=== PATIENT | male | born 1940 | race Caucasian/White ===

== ENCOUNTER 2020-09-02 04:45 | Day surgery (SDC) | payer OTHER ==
[2020-09-01 10:19] VITALS: BMI 26.6
[~2020-09-02 04:45] MED LIST: ceFAZolin SODIUM 1 GM VIAL IVPB ONE
[2020-09-02] MEDS ORDERED: DEXAMETHASONE SOD PHOSPHATE 4 MG/1 ML VIAL ONE (10:56)
[2020-09-02] MEDS ORDERED: ceFAZolin SODIUM 1 GM VIAL IVPB ONE (11:05)
[2020-09-02] MEDS ORDERED: ceFAZolin SODIUM 1 GM VIAL ONE ×2 (11:25)
[2020-09-02] MEDS ORDERED: ONDANSETRON 4 MG/2 ML VIAL IVPUSH PRN (12:03)
[2020-09-02] MEDS ORDERED: oxyCODONE HCL 5 MG TABLET PO PRN (12:03)
[2020-09-02] MEDS ORDERED: LACTATED RINGERS SOLUTION 1,000 ML IV SCH (12:15)
[2020-09-02 14:07] VITALS: BP 147/87; PULSE 74; TEMP 97.4
== END 2020-09-02 14:00 | disposition home or self-care (01) ==
LOC: JASU-SURG 04:45
PROVIDERS: ATTEND Urology
PROC: 0TC78ZZ Extirpation of Matter from Left Ureter, Via Natural or Artificial Opening Endoscopic (ICD-10-PCS; principal; 2020-09-02 10:00)
PROC: 0T9780Z Drainage of Left Ureter with Drainage Device, Via Natural or Artificial Opening Endoscopic (ICD-10-PCS; 2020-09-02 10:00)
DX: N13.2 Hydronephrosis with renal and ureteral calculous obstruction (principal)
CPT/HCPCS: 76000-TC-FY; 88108; 94760

== ENCOUNTER 2020-11-11 04:15 | Day surgery (SDC) | payer OTHER ==
[2020-11-10 15:36] VITALS: BMI 25.0
[2020-11-11] MEDS ORDERED: TRIAMCINOLONE ACET 40MG/1ML VIAL ONE (07:29)
[2020-11-11] MEDS ORDERED: LIDOCAINE HCL/PF 1% SDV 5ML VIAL ONE (07:29)
[2020-11-11] MEDS ORDERED: BUPIVACAINE HCL 50 ML ONE (07:29)
[2020-11-11] MEDS ORDERED: DEXAMETHASONE SOD PHOSPHATE 10 MG/1 ML VIAL ONE (07:29)
[2020-11-11] MEDS ORDERED: BUPIVACAINE HCL/PF 0.5% (5MG/ML) 10 ML VIAL ONE (07:29)
[2020-11-11] MEDS ORDERED: BUPIVACAINE HCL/PF 0.75% 10 ML VIAL ONE (07:29)
[2020-11-11] MEDS ORDERED: IOHEXOL 180 MG/1 ML ML IJ ONE (09:12)
[2020-11-11] MEDS ORDERED: BUPIVACAINE 0.75% IN DEXTROSE/PF 2ML AMPULE NR ONE (09:13)
[2020-11-11] MEDS ORDERED: LIDOCAINE HCL 1% PRESERVATIVE FREE - 30ML VIAL IJ ONE (09:13)
[2020-11-11 09:30] VITALS: TEMP 98.3
[2020-11-11 10:17] VITALS: BP 140/80; PULSE 58
== END 2020-11-11 10:10 | disposition home or self-care (01) ==
LOC: JASU-SURG 04:15
PROVIDERS: ATTEND Pain Medicine Pain Medicine
PROC: BR16YZZ Fluoroscopy of Lumbar Facet Joint(s) using Other Contrast (ICD-10-PCS; 2020-11-11)
PROC: 3E0T3BZ Introduction of Anesthetic Agent into Peripheral Nerves and Plexi, Percutaneous Approach (ICD-10-PCS; principal; 2020-11-11 09:00)
DX: M47.816 Spondylosis without myelopathy or radiculopathy, lumbar region (principal)
CPT/HCPCS: 76000-TC-FY; J1100

== ENCOUNTER 2020-12-02 05:08 | Day surgery (SDC) | payer OTHER ==
[2020-11-30 17:04] VITALS: BMI 25.0
[2020-12-02] MEDS ORDERED: BUPIVACAINE HCL/PF 0.75% 10 ML VIAL ONE (07:29)
[2020-12-02] MEDS ORDERED: LIDOCAINE HCL/PF 1% SDV 5ML VIAL ONE (07:29)
[2020-12-02] MEDS ORDERED: LIDOCAINE HCL 1% PRESERVATIVE FREE - 30ML VIAL IJ ONE ×2 (13:16)
[2020-12-02] MEDS ORDERED: IOHEXOL 180 MG/1 ML ML IJ ONE ×2 (13:17→13:24)
[2020-12-02] MEDS ORDERED: BUPIVACAINE HCL/PF 0.75% 10 ML VIAL NR ONE ×2 (13:18→13:24)
[2020-12-02 13:51] VITALS: BP 127/88; PULSE 66; TEMP 97.2
== END 2020-12-02 13:50 | disposition home or self-care (01) ==
LOC: JASU-SURG 05:08
PROVIDERS: ATTEND Pain Medicine Pain Medicine
PROC: BR16YZZ Fluoroscopy of Lumbar Facet Joint(s) using Other Contrast (ICD-10-PCS; 2020-12-02)
PROC: 3E0T3BZ Introduction of Anesthetic Agent into Peripheral Nerves and Plexi, Percutaneous Approach (ICD-10-PCS; principal; 2020-12-02 12:00)
DX: M47.816 Spondylosis without myelopathy or radiculopathy, lumbar region (principal)
CPT/HCPCS: 76000-TC-FY